=== PATIENT | female | born 2000 | race Caucasian/White ===

== ENCOUNTER 2019-07-21 18:59 | Emergency (ER) | payer MEDICAID ==
[~2019-07-21] VITALS: Ht 162.6 cm; Wt 86.2 kg
[2019-07-21 19:13] VITALS: BP_SYST 122
--- NOTE | 2019-07-21 19:18 | NUR ---
Patient triaged and placed in waiting room. VSS and patient appears in no acute distress at this time. Accompanied by family, awaiting available bed, and MD notified of need for MSE.
--- NOTE | 2019-07-21 22:00 | NUR ---
Pt called from waiting room, no answer.
--- NOTE | 2019-07-21 22:05 | NUR ---
Patient was called, no response.
--- NOTE | 2019-07-21 22:15 | NUR ---
Patient was called, no response. Patient left without being seen @ [id number].
== END 2019-07-21 22:15 | disposition left against medical advice (07) ==
LOC: SED 18:59
DX: M79.675 Pain in left toe(s) (principal); Z53.21 Procedure and treatment not carried out due to patient leaving prior to being seen by health care provider